=== PATIENT | male | born 1945 | race Caucasian/White ===

== ENCOUNTER 2017-05-21 16:31 | Emergency (ER) | payer OTHER ==
[~2017-05-21] VITALS: Ht 172.7 cm; Wt 125.7 kg
[2017-05-21 17:34] LABS: HEMATOCRIT 44.3 % (38.0-50.0); MCHC 32.1 G/DL (30.0-36.0); MCV 87.4 FL (86-99); MEAN PLAT.VOLUME 10.8 uM^3 (9.0-12.4); PLATELET COUNT 243 K/uL (156-360); RBC DIS.WIDTH-CV 14.4 % (11.8-14.6); RED BLOOD COUNT 5.07 M/uL (4.00-5.50); WHITE BLOOD COUNT 15.8 K/uL (4.1-10.2)
[2017-05-21 17:41] LABS: INTER. NORMALIZED RATIO 2.9; PROTHROMBIN TIME 33.6 SEC (10.2-12.9)
[2017-05-21 17:43] LABS: PTT 40.8 SEC (25-37)
[2017-05-21 17:46] LABS: CHLORIDE 98 mEq/L (99-109); POTASSIUM 4.3 mEq/L (3.7-5.4); SODIUM 139 mEq/L (136-147)
[2017-05-21 17:48] LABS: GLUCOSE 211 mg/dL (70-99)
[2017-05-21 17:49] LABS: ANION GAP 10 MEQ/L (2-14)
[2017-05-21 17:50] LABS: TOTAL BILIRUBIN 0.4 mg/dL (0.0-1.0)
[2017-05-21 17:52] LABS: ALKALINE PHOSPHATASE 70 IU/L (3-129); GFR ESTIMATE (CALCULATED) 37 mL/min/
[2017-05-21 17:53] LABS: UREA NITROGEN (BUN) 36 mg/dL (9-23)
[2017-05-21 20:21] VITALS: BP 147/82
== END 2017-05-21 20:23 | disposition home or self-care (01) ==
LOC: EME 16:31
PROVIDERS: Emergency Medicine
DX: S20.212A Contusion of left front wall of thorax, initial encounter (principal); S09.90XA Unspecified injury of head, initial encounter; W13.8XXA Fall from, out of or through other building or structure, initial encounter; Y93.01 Activity, walking, marching and hiking; I13.0 Hypertensive heart and chronic kidney disease with heart failure and stage 1 through stage 4 chronic kidney disease, or unspecified chronic kidney disease; I50.9 Heart failure, unspecified; N18.9 Chronic kidney disease, unspecified; E11.22 Type 2 diabetes mellitus with diabetic chronic kidney disease; E78.5 Hyperlipidemia, unspecified; M10.9 Gout, unspecified; Z86.718 Personal history of other venous thrombosis and embolism; Z96.89 Presence of other specified functional implants; Z79.01 Long term (current) use of anticoagulants
CPT/HCPCS: 70450; 71250; 80053; 85027; 85610; 85730; 99281; 99284

== ENCOUNTER 2017-10-29 09:53 | Day surgery (SDC) | payer OTHER ==
[~2017-10-29] VITALS: Ht 172.7 cm; Wt 128.0 kg
[~2017-10-29 09:53] MED LIST: ALLOPURINOL300 MG PO; ASPIRIN81 M2 PO; ATORVASTATIN CA20 MG PO; ERGOCALCIF50000 UNIT PO; FUROSEMIDE40 MG PO; HUMALOG MI100 UNIT/6 SC; IRBESARTAN150 MG PO; JANTOVEN5 MG PO; KOMBIGLYZE XR1 EACH PO; LEVOTHYROXINE50 MCG PO; METOPROLOL SUC100 MG PO; POTASSIUM CHLO20 ME1 PO; TRULICITY0.75 MG/0. SC
== END 2017-10-29 16:22 | disposition home or self-care (01) ==
LOC: CATH 09:53
PROVIDERS: Internal Medicine Cardiovascular Disease
DX: I25.10 Atherosclerotic heart disease of native coronary artery without angina pectoris (principal); I35.0 Nonrheumatic aortic (valve) stenosis; E11.22 Type 2 diabetes mellitus with diabetic chronic kidney disease; I12.9 Hypertensive chronic kidney disease with stage 1 through stage 4 chronic kidney disease, or unspecified chronic kidney disease; N18.3 Chronic kidney disease, stage 3 (moderate); E78.5 Hyperlipidemia, unspecified; E66.01 Morbid (severe) obesity due to excess calories; Z68.41 Body mass index [BMI] 40.0-44.9, adult; Z86.718 Personal history of other venous thrombosis and embolism; Z82.49 Family history of ischemic heart disease and other diseases of the circulatory system; Z79.82 Long term (current) use of aspirin; Z79.4 Long term (current) use of insulin; Z79.01 Long term (current) use of anticoagulants; F17.211 Nicotine dependence, cigarettes, in remission
CPT/HCPCS: 82948; 93005; C1769; C1887; J1644; J2250; J3010; J7040